=== PATIENT | male | born 1955 | race Caucasian/White ===

== ENCOUNTER 2023-08-26 14:58 | Emergency (ER) | payer OTHER, MEDICAID ==
[~2023-08-26] VITALS: Ht 144.8 cm; Wt 49.9 kg
[2023-08-26 15:08] VITALS: BP 158/87; PULSE 86; RESP 18; TEMP 97.9; O2SAT 95
[2023-08-26 15:10] VITALS: O2SAT 95
[2023-08-26 15:30] LABS: BASOPHILS % (AUTO) 0.4 % (0.0-2.0); EOSINOPHILS # (AUTO) 0.1 K/uL (0-0.4); EOSINOPHILS % (AUTO) 2.9 % (0.0-4.0); HEMATOCRIT 38.7 % (36-52); HEMOGLOBIN 13.1 g/dL (12.0-18.0); LYMPHOCYTES # (AUTO) 1.3 K/uL (2.0-11.5); MEAN CORPUSCULAR HEMOGLOBIN 30 pg (27-31); MEAN CORPUSCULAR HGB CONC 34 g/dL (33-37); MEAN CORPUSCULAR VOLUME 89.7 fL (80-94); MONOCYTES # (AUTO) 0.4 K/uL (0.8-1.0); MONOCYTES % (AUTO) 7.3 % (1.7-9.3); NEUTROPHILS # (AUTO) 3.3 K/uL (1.8-7.7); NEUTROPHILS % (AUTO) 64.4 % (42.2-75.2); PLATELET COUNT (AUTO) 186 K/uL (140-450); RED BLOOD CELL COUNT(AUTO) 4.31 MIL/uL (4.20-6.10); RED CELL DISTRIBUTION WIDTH 14.1 % (11.6-13.7); WHITE BLOOD COUNT (AUTO) 5.1 K/uL (4.8-10.8)
[2023-08-26 15:41] LABS: ANION GAP 11.7 (8-16); CALCIUM 8.6 mg/dL (8.5-10.1); CARBON DIOXIDE 27.8 mmol/L (21-32); CREATININE 0.8 mg/dL (0.6-1.3); POTASSIUM 3.5 mmol/L (3.5-5.1)
[2023-08-26 17:24] VITALS: O2SAT 95
[2023-08-26] MEDS ORDERED: KETOROLAC 30 MG/ML VIAL IM ONE (17:55)
[2023-08-26] MEDS ORDERED: ACET-10509 PO (17:56)
[2023-08-26] MEDS: KETOROLAC 30 MG/ML VIAL IVP ONE (18:08)
[2023-08-26 18:23] VITALS: BP 121/75; PULSE 62; RESP 16; TEMP 98; O2SAT 99
== END 2023-08-26 18:23 | disposition home or self-care (01) ==
LOC: MED 14:58
DX: R51.9 Headache, unspecified (principal); R55 Syncope and collapse; Z79.899 Other long term (current) drug therapy
CPT/HCPCS: 36415; 70450; 71045; 80048; 84484; 85025; 93005; 96374; 99285; J1885